=== PATIENT | male | born 2000 | race Caucasian/White ===

== ENCOUNTER 2021-04-20 18:49 | Emergency (ER) | payer OTHER ==
[~2021-04-20] VITALS: Ht 180.3 cm; Wt 83.2 kg
[2021-04-20] MEDS ORDERED: DERMABOND TOPICAL SKIN ADHESIVE TOP ONE (22:00)
[2021-04-20 22:28] VITALS: BP 122/65
== END 2021-04-20 22:28 | disposition home or self-care (01) ==
LOC: M ED 18:49
DX: S01.511A Laceration without foreign body of lip, initial encounter (principal); W22.8XXA Striking against or struck by other objects, initial encounter; Y92.9 Unspecified place or not applicable; Y93.9 Activity, unspecified; Y99.1 Military activity